=== PATIENT | male | born 1970 | race Two or more races ===

== ENCOUNTER 2020-10-23 09:20 | Emergency (ER) | payer BC ==
[~2020-10-23] VITALS: Ht 170.2 cm; Wt 87.8 kg
[2020-10-23] MEDS ORDERED: MAALOX/HYOSCYAMINE/LIDOCAINE 45 ML BTL PO ONE (10:00)
[2020-10-23] MEDS ORDERED: SODIUM CHLORIDE FLUSH 10ML SYR IVF ONE (10:00)
[2020-10-23] MEDS ORDERED: MAALOX/HYOSCYAMINE/LIDOCAINE 45 ML BTL ONE (10:07)
--- NOTE | 2020-10-23 10:16 | NUR ---
epigastric/umbilical pain sometimes after eating mult weeks more frequent lately. no n/v/d. eating/drinking ok. daughter at bedside. labs/us ordered. call milan.as
[2020-10-23 10:21] LABS: BASOPHILS % (AUTO) 1 % (0-1); EOSINOPHILS % (AUTO) 2 % (1-7); LYMPHOCYTES % (AUTO) 17 % (22-44); MEAN CORPUSCULAR HEMOGLOBIN 28.3 pg (27.5-34.5); MEAN CORPUSCULAR HGB CONC 34.2 g/dL (33.2-36.2); MEAN PLATELET VOLUME 9.1 fL (7.4-10.4); MONOCYTES % (AUTO) 8 % (2-9); NEUTROPHILS % (AUTO) 72 % (42-75); PLATELET COUNT 264 x10^3/uL (130-400); RED BLOOD COUNT 5.41 x10^6/uL (4.38-5.82); RED CELL DISTRIBUTION WIDTH 13.9 % (9.4-14.8)
[2020-10-23 10:23] LABS: MD NO
[2020-10-23 10:31] LABS: ALANINE AMINOTRANSFERASE 27 U/L (12-78); ALBUMIN 3.4 g/dL (3.4-5.0); ANION GAP 8 mmol/L (5-15); CALCIUM 8.8 mg/dL (8.5-10.1); CHLORIDE 111 mmol/L (98-107); CREATININE 0.75 mg/dL (0.7-1.3)
[2020-10-23 10:33] LABS: ALKALINE PHOSPHATASE 66 U/L (45-117); BILIRUBIN,TOTAL 0.7 mg/dL (0.2-1.0); TOTAL PROTEIN 6.6 g/dL (6.4-8.2)
--- NOTE | 2020-10-23 10:53 | NUR ---
labs resulted awaiting us pt drowsing in bed vss. as
--- NOTE | 2020-10-23 11:52 | NUR ---
us shows cholelithiasis, recheck. as
[2020-10-23 12:15] VITALS: BP 113/65
[2020-10-24] MEDS ORDERED: SUCR1TAB33 PO (00:10)
[2020-10-24] MEDS ORDERED: OMEP20TA62 PO (00:10)
[2020-10-24] MEDS ORDERED: HYDR-1067 PO (17:16)
== END 2020-10-23 12:21 | disposition home or self-care (01) ==
LOC: ED 12:06
DX: K29.00 Acute gastritis without bleeding (principal); K42.9 Umbilical hernia without obstruction or gangrene
CPT/HCPCS: 36415; 76700; 80053; 83690; 85025; 99285

== ENCOUNTER 2020-10-23 23:44 | Inpatient (IN) | payer BC ==
[~2020-10-23] VITALS: Ht 167.6 cm; Wt 86.0 kg
--- NOTE | 2020-10-24 00:06 | NUR ---
patient visibly uncomfortable in room. unable to sit or stand still and leaning over in tripod position multiple times during physical exam. ruthy DOUGLASS notified of patient's appearance. family at bedside for interpretation. states he feels distended in his belly and reports "it feels like a band is around my stomach and chest. patient was at [facility] earlier today for same complaint but seems to be in more pain now than last visit. denies diarrhea. reports normal BM today. reports no trouble urinating. took prescribed medications today.
[2020-10-24] MEDS ORDERED: OMEP20TA62 PO (00:10)
[2020-10-24] MEDS ORDERED: SUCR1TAB33 PO (00:10)
[2020-10-24] MEDS ORDERED: HYDROmorphone 1 MG/ML, 1ML INJ ONE ×3 (00:17→15:08)
[2020-10-24] MEDS ORDERED: ONDANSETRON 2MG/ML, 2ML ONE ×2 (00:17→14:06)
[2020-10-24] MEDS: HYDROmorphone 1 MG/ML, 1ML INJ IVPush PRN ×4 (00:27→15:25)
[2020-10-24] MEDS ORDERED: SODIUM CHLORIDE FLUSH 10ML SYR IVF ONE (00:30)
[2020-10-24] MEDS ORDERED: ONDANSETRON 2MG/ML, 2ML IVPush ONE (00:30)
[2020-10-24 00:40] LABS: BASOPHILS % (AUTO) 0 % (0-1); EOSINOPHILS % (AUTO) 3 % (1-7); LYMPHOCYTES % (AUTO) 21 % (22-44); MEAN CORPUSCULAR HGB CONC 34.5 g/dL (33.2-36.2); MEAN PLATELET VOLUME 9.3 fL (7.4-10.4); MONOCYTES % (AUTO) 7 % (2-9); NEUTROPHILS % (AUTO) 69 % (42-75); PLATELET COUNT 272 x10^3/uL (130-400); RED BLOOD COUNT 5.31 x10^6/uL (4.38-5.82); RED CELL DISTRIBUTION WIDTH 13.7 % (9.4-14.8)
[2020-10-24 00:41] LABS: MD NO
[2020-10-24 00:49] LABS: ALANINE AMINOTRANSFERASE 27 U/L (12-78); ALBUMIN 3.5 g/dL (3.4-5.0); ANION GAP 7 mmol/L (5-15); CALCIUM 8.8 mg/dL (8.5-10.1); CHLORIDE 110 mmol/L (98-107); CREATININE 0.75 mg/dL (0.7-1.3)
[2020-10-24 00:51] LABS: ALKALINE PHOSPHATASE 66 U/L (45-117); BILIRUBIN,TOTAL 0.7 mg/dL (0.2-1.0); TOTAL PROTEIN 7.1 g/dL (6.4-8.2)
--- NOTE | 2020-10-24 01:04 | NUR ---
patient resting in bed in NAD. call milan in reach. family member at bedside. provided urine sample
--- NOTE | 2020-10-24 01:10 | NUR ---
patient sent to CT at this time
[2020-10-24 01:17] LABS: MICROSCOPIC NOT IND
[2020-10-24] MEDS ORDERED: OMNIPAQUE 350 MG/ML, 100ML BOTTLE ONE (01:20)
--- NOTE | 2020-10-24 01:21 | NUR ---
patient returned from CT at this time
--- NOTE | 2020-10-24 01:31 | NUR ---
patient in NAD. call milan in reach. safety maintained. will continue to monitor.
[2020-10-24] MEDS ORDERED: PIPERACILLIN/TAZO/PMX 3.375GM 50 ML ONE (01:43)
[2020-10-24] MEDS ORDERED: PIPERACILLIN/TAZO/PMX 3.375GM 50 ML IV ONE (02:00)
--- NOTE | 2020-10-24 02:40 | NUR ---
report given to Ofe HARRY
--- NOTE | 2020-10-24 02:51 | NUR ---
patient transferred up to inpatient unit with all personal belongings. notified of visiting hours.
[2020-10-24 03:20] VITALS: BP 114/73
[2020-10-24] MEDS ORDERED: DOCUSATE 100 MG CAPSULE PO PRN (03:30)
[2020-10-24] MEDS ORDERED: SODIUM CHLORIDE 0.9% 1,000 ML IV SCH (03:30)
[2020-10-24] MEDS ORDERED: HYDROcodone/APAP 5/325 TABLET PO PRN (03:30)
[2020-10-24] MEDS ORDERED: LABETALOL 5MG/ML, 20ML IVPush PRN (03:30)
[2020-10-24] MEDS ORDERED: morphine SULFATE 10 MG/ML, 1ML IVPush PRN (03:30)
[2020-10-24] MEDS ORDERED: ONDANSETRON 2MG/ML, 2ML IVPush PRN ×2 (03:30→14:00)
[2020-10-24 04:11] VITALS: BP 102/59
[2020-10-24 06:55] VITALS: BP 118/64
[2020-10-24] MEDS: PIPERACILLIN/TAZO/PMX 3.375GM 50 ML IV SCH ×2 (08:09→16:12)
[2020-10-24 12:57] VITALS: BP 114/73
[2020-10-24] MEDS ORDERED: ROCURONIUM 10MG/ML,5ML ONE (13:18)
[2020-10-24] MEDS ORDERED: MIDAZOLAM 1 MG/ML, 2ML ONE (13:18)
[2020-10-24] MEDS ORDERED: SUCCINYLCHOLINE 20 MG/ML, 10ML ONE (13:18)
[2020-10-24] MEDS ORDERED: PROPOFOL 10 MG/ML, 20ML ONE (13:18)
[2020-10-24] MEDS ORDERED: FENTANYL PF 250 MCG/5ML ONE (13:19)
[2020-10-24] MEDS ORDERED: CHLORHEXIDINE 15 ML UDC ONE (13:28)
[2020-10-24] MEDS ORDERED: DEXAMETHASONE 4 MG/ML, 1ML ONE (13:45)
[2020-10-24] MEDS ORDERED: EPINEPHRINE 1 MG/ML, 1ML INFIL ONE (13:53)
[2020-10-24] MEDS ORDERED: BUPIVACAINE/PF 0.5% INFIL ONE (13:53)
[2020-10-24] MEDS ORDERED: KETOROLAC 30 MG/1 ML ONE (13:59)
[2020-10-24] MEDS ORDERED: EPHEDRINE 50 MG/ML, 1ML ONE (13:59)
[2020-10-24] MEDS ORDERED: MEPERIDINE/PF 25MG/0.5ML IVPush PRN (14:00)
[2020-10-24] MEDS ORDERED: LABETALOL 5MG/ML, 20ML IV PRN (14:00)
[2020-10-24] MEDS ORDERED: hydrALAzine 20 MG/ML, 1ML IV PRN (14:00)
[2020-10-24] MEDS ORDERED: OXYcodone 5 MG/5 ML ORAL.SOL UDC PO PRN (14:00)
[2020-10-24] MEDS ORDERED: PROMETHAZINE 25 MG/ML, 1ML IVPush PRN (14:00)
[2020-10-24] MEDS ORDERED: ACETAMINOPHEN 325 MG TABLET PO PRN (14:00)
[2020-10-24] MEDS ORDERED: OXYcodone 5 MG/5 ML ORAL.SOL UDC ONE (14:52)
[2020-10-24] MEDS ORDERED: FENTANYL PF 100 MCG/2ML ONE (14:52)
[2020-10-24] MEDS: FENTANYL PF 100 MCG/2ML IV PRN ×2 (14:53→15:00)
[2020-10-24] MEDS ORDERED: MORPHINE SULFATE 4 MG/ML, 1ML IV PRN (16:30)
[2020-10-24] MEDS ORDERED: OXYcodone IR 5MG TABLET PO PRN (16:30)
[2020-10-24] MEDS ORDERED: ONDANSETRON 2MG/ML, 2ML IV PRN (16:30)
[2020-10-24] MEDS ORDERED: LACTATED RINGERS 1,000 ML IV SCH (16:30)
[2020-10-24] MEDS ORDERED: HYDR-1067 PO (17:16)
[2020-10-24 19:59] VITALS: BP 112/72
== END 2020-10-24 20:12 | disposition home or self-care (01) | DRG 419 ==
LOC: ED 10-24 00:15 → INTOOBSV 10-24 01:55 → EDIP 10-24 01:55 → 4NE 10-24 02:51 → OBSVTOIN 10-24 10:24
PROVIDERS: ADMIT Family Medicine; ATTEND Internal Medicine
PROC: 0FT44ZZ Resection of Gallbladder, Percutaneous Endoscopic Approach (ICD-10-PCS; principal; 2020-10-24 14:00)
DX: K80.00 Calculus of gallbladder with acute cholecystitis without obstruction (principal); F17.200 Nicotine dependence, unspecified, uncomplicated; K57.90 Diverticulosis of intestine, part unspecified, without perforation or abscess without bleeding; Z20.822 Contact with and (suspected) exposure to COVID-19; D72.829 Elevated white blood cell count, unspecified
CPT/HCPCS: 36415; 96374; 96375; 96376; 99285; S0020; 74177; 80053; 81003; 83690; 85025; 87635; 88304; G0378; J0171; J1100; J1170; J1885; J2250; J2405; J2543; J2704; J3010; Q9967; J0330; J7030